=== PATIENT | female | born 1970 | race Caucasian/White ===

== ENCOUNTER → 2020-01-12 | Outpatient (CLI) | payer OTHER | LOC: LAB 13:35 | DX: Z20.828 Contact with and (suspected) exposure to other viral communicable diseases (principal) ==

== ENCOUNTER → 2020-10-09 | Outpatient (REF) | LOC: LAB 13:09 | DX: Z20.822 Contact with and (suspected) exposure to COVID-19 (principal) ==

== ENCOUNTER → 2021-02-21 | Outpatient (REF) | LOC: LAB 10:56 | DX: U07.1 COVID-19 (principal) ==

== ENCOUNTER → 2021-09-12 | Outpatient (CLI) | payer OTHER ==
[2021-09-12 06:59] LABS: BASO # 0.02 K/mm3 (0.02-0.10); EOS % 4.2 % (1.0-5.0); HEMOGLOBIN 11.3 g/dL (12.5-16.0); LYMPH# 1.88 K/mm3 (1.50-4.00); MEAN CELL VOLUME 102 fl (78-100); MEAN CORPUSCULAR HEMOGLOBIN 34 pg (27-31); MEAN CORPUSCULAR HGB CONC 33 g/dL (33-37); MEAN PLATELET VOLUME 11.1 fl (7.4-10.4); MONO # 0.55 K/mm3 (0.20-0.80); NEU # 2.13 K/mm3 (1.40-6.50); PLATELET COUNT 230 K/mm3 (130-400); RED BLOOD COUNT 3.35 M/mm3 (4.10-5.30); WHITE BLOOD COUNT 4.8 K/mm3 (4.8-10.8)
[2021-09-12 09:42] LABS: ALBUMIN 4.5 g/dL (3.5-5.0)
[2021-09-12 09:43] LABS: CALCIUM 10.1 mg/dL (8.3-10.5)
[2021-09-12 09:44] LABS: TOTAL PROTEIN 7.5 g/dL (6.4-8.3)
[2021-09-12 09:46] LABS: TOTAL BILIRUBIN 0.2 mg/dL (0.2-1.2)
== END ==
LOC: LAB 06:35
PROVIDERS: Physician Assistant
DX: Z13.0 Encounter for screening for diseases of the blood and blood-forming organs and certain disorders involving the immune mechanism (principal); Z13.29 Encounter for screening for other suspected endocrine disorder; Z13.6 Encounter for screening for cardiovascular disorders; Z13.1 Encounter for screening for diabetes mellitus; Z13.220 Encounter for screening for lipoid disorders